=== PATIENT | male | born 1990 | race Caucasian/White ===

== ENCOUNTER 2016-11-08 09:32 | Day surgery (SDC) | payer BC ==
[~2016-11-08 09:32] MED LIST: Lactated Ringers 1,000 ML IV SCH
[2016-11-08] MEDS ORDERED: fentaNYL 100 MCG/2 ML SDV ONE (10:38)
[2016-11-08] MEDS ORDERED: Midazolam 1 MG/ML 2 ML SDV ONE (10:38)
[2016-11-08] MEDS ORDERED: Propofol 200 MG/20 ML SDV ONE (10:39)
[2016-11-08 12:03] VITALS: BP 119/35
--- NOTE | 2016-11-08 15:10 | OR ---
PREOPERATIVE DIAGNOSIS: Intermittent bloody diarrhea. POSTOPERATIVE DIAGNOSIS: Normal colonoscopic exam, biopsies pending. PROCEDURE PROPOSED: Total flexible colonoscopy with multiple random biopsies. PROCEDURE DONE: Total flexible colonoscopy with multiple random biopsies. INDICATION: This is a 25-year-old gentleman, who over the last year and a half has had 3 episodes of bloody diarrhea with some abdominal cramping. He denies any family history of bowel disease and otherwise his bowel function is normal. In between these episodes, which last anywhere from 3 days to 5 or 6 days. TECHNIQUE: The patient was brought to the endoscopy suite, placed in left lateral decubitus position. He was sedated with propofol per [employer]. The flexible video colonoscope was then passed transanally and under visualization advanced to the cecum. Examination revealed a normal ascending, transverse, descending, sigmoid, and rectal colon. There was no evidence of any polyps. There were no signs of any visible colitis or other abnormalities, but multiple random biopsies were taken from all levels of the colon totaling about 10 to 12 biopsies, and these were submitted for pathologic examination. IMPRESSION: Normal colonoscopic exam. PLAN: Biopsies are pending. I will send him a letter with the results and make further recommendations based on the pathology. SCM: 11/08/2016 11:33:38 MODL: 11/08/2016 14:56:50 /[id number]
--- NOTE | 2016-11-22 15:53 | LETTER ---
11/22/2016 RE: GURWINDER NGUYEN : 1990 Dear Mr. Nguyen: The biopsy taken from your colon revealed no pathologic abnormality whatsoever. Everything was very normal. This would indicate that you have more of a functional diarrhea as opposed to any type of colitis. I would suggest a regimen of 1 tablespoon of Metamucil daily mixed in with juice or water to help regulate your stools. If that does not do the job, I would recommend adding 1 Imodium pill each morning to the Metamucil and the combination should help regulate your stools. If you have ongoing problems you should consult with your family physician, any potentially may need to be seen by a GI specialist. Respectfully,
== END 2016-11-08 12:27 | disposition home or self-care (01) ==
LOC: VM.SDS 09:32
PROVIDERS: ATTEND Surgery
DX: R10.9 Unspecified abdominal pain (principal); R19.7 Diarrhea, unspecified; Z98.890 Other specified postprocedural states
CPT/HCPCS: 45380; J2250; J2704; J3010; J7120